=== PATIENT | male | born 1950 | race Caucasian/White ===

== ENCOUNTER 2019-05-09 07:21 | Day surgery (SDC) | payer OTHER ==
[~2019-05-09] VITALS: Ht 185.4 cm; Wt 116.8 kg
[~2019-05-09 07:21] MED LIST: BUPR150ER; Cialis5 MG; DIAZ5 PO; TAMS.4ER; TRIHYD253A PO
--- NOTE | 2019-05-09 07:57 | NUR ---
History, Chart, Medications and Allergies reviewed before start of procedure.Patient confirms NPO status and agrees with scheduled surgery. Lungs clear T/O to Auscultation. Patient States Post-Procedure ride home has been arranged. Patient states colon prep results clear.
--- NOTE | 2019-05-09 09:35 | NUR ---
05/09/19 0935 BRADLY العلي History, Chart, Medications and Allergies reviewed before start of procedure.3-LEAD EKG REVIEWED WITH PHYSICIAN PRIOR TO START OF PROCEDURE.O2 VIA N/C INTACT THROUGHOUT SEDATION/PROCEDURE. MONITOR INTACT WITH CONTINUOUS PULSE OXIMETRY AND INTERMITTENT BP.See Anesthesia record
--- NOTE | 2019-05-09 11:05 | NUR ---
Patient States Post-Procedure ride home has been arranged. Discharge instructions reviewed with patient. Patient verbalizes understanding. Copy given to patient to take home.
== END 2019-05-09 11:04 | disposition home or self-care (01) ==
LOC: ORSCMMR 07:21 → ORD 09:00 → ORSCMMR 11:04
DX: K63.89 Other specified diseases of intestine (principal); D12.3 Benign neoplasm of transverse colon; D12.4 Benign neoplasm of descending colon; I10 Essential (primary) hypertension; G47.33 Obstructive sleep apnea (adult) (pediatric); K21.9 Gastro-esophageal reflux disease without esophagitis; H81.09 Meniere's disease, unspecified ear; E66.9 Obesity, unspecified; Z68.34 Body mass index [BMI] 34.0-34.9, adult; Z79.899 Other long term (current) drug therapy
CPT/HCPCS: 88305; J2001; J2704; J7120

== ENCOUNTER 2019-05-26 10:21 | Day surgery (SDC) | payer OTHER ==
--- NOTE | 2019-05-26 12:05 | NUR ---
PT TRANSFERRED TO ROOM, SITTING UP IN BED, WITH PT. PT DENIES PAIN, DENIES RECTAL BLEEDING, DENIES N/V. PT WILL REMAIN NPO UNTIL GOING HOME. VSS. INSTRUCTED PT TO NOTIFY NURSING STAFF IF ANY CHANGES IN POSITION, ANY N/V, ANY PAIN, ANY BLEEDING. PT AND UNDERSTAND INSTRUCTIONS AND WILL NOTIFY NURSING STAFF OF ANY CHANGES.
--- NOTE | 2019-05-26 12:51 | NUR ---
DR EPPS ROUNDING ON PT, ORDERS TO START PT ON CLEARS AND SEND HIM HOME AT 1400.
--- NOTE | 2019-05-26 14:16 | NUR ---
provided pt with discharge instructions, no peripheral IV to be removed, VSS, no acute changes. pt requests to walk to his car
== END 2019-05-26 14:15 | disposition home or self-care (01) ==
LOC: CT 10:21 → SURS 11:57 → CT 14:15
DX: K63.89 Other specified diseases of intestine (principal); D12.4 Benign neoplasm of descending colon; D12.3 Benign neoplasm of transverse colon; I10 Essential (primary) hypertension; F90.9 Attention-deficit hyperactivity disorder, unspecified type; G47.30 Sleep apnea, unspecified; H81.09 Meniere's disease, unspecified ear; Z99.89 Dependence on other enabling machines and devices; Z87.891 Personal history of nicotine dependence; Z79.899 Other long term (current) drug therapy
CPT/HCPCS: 49180; 77012; 88305

== ENCOUNTER 2019-07-15 08:15 | Inpatient (IN) | payer OTHER ==
[~2019-07-15] VITALS: Ht 185.4 cm; Wt 118.2 kg
--- NOTE | 2019-07-16 06:36 | NUR ---
History, Chart, Medications and Allergies reviewed before start of procedure. Lungs clear T/O to Auscultation. Patient confirms NPO status and agrees with scheduled surgery. Patient reports completing Chlorhexadine shower X2 prior to admission to hospital. Pre-Op teaching done. Pt verbalizes understanding. Patient states colon prep results clear.
--- NOTE | 2019-07-16 13:19 | NUR ---
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
--- NOTE | 2019-07-16 15:09 | NUR ---
pt dozing off increased oxygen to 3l nc biox went up to 94%
--- NOTE | 2019-07-16 17:03 | NUR ---
DR LOYA BY TO SEE PT OK TO HAVE ICE CHIPS AND SIPS OF JUICE
--- NOTE | 2019-07-16 18:09 | NUR ---
pt wanting to stand next to the bed again tried earlier no dizziness or nausea pt's asked if she could help him stated yes
[2019-07-17 05:46] LABS: BASOPHILS ABSOLUTE AUTO 0.04 K/mm3 (0.00-0.23); BASOPHILS PERCENT AUTO 0 % (0-2); EOSINOPHILS ABSOLUTE AUTO 0.02 K/mm3 (0.00-0.68); EOSINOPHILS PERCENT AUTO 0 % (0-6); Hematocrit 45.5 % (37.0-53.0); Hemoglobin 14.9 g/dL (13.5-17.5); IMMATURE GRAN ABSOLUTE AUTO 0.04 K/mm3 (0.00-0.10); IMMATURE GRAN PERCENT AUTO 0 % (0-1); LYMPHOCYTES ABSOLUTE AUTO 1.23 K/mm3 (0.84-5.20); LYMPHOCYTES PERCENT AUTO 10 % (21-46); MONOCYTES ABSOLUTE AUTO 1.67 K/mm3 (0.16-1.47); MONOCYTES PERCENT AUTO 13 % (4-13); Mean Corpuscular HGB 30.5 pg (26.0-34.0); Mean Corpuscular HGB Conc 32.7 g/dL (31.5-36.5); Mean Corpuscular Volume 93 fL (80-100); Mean Platelet Volume 10.7 fL (9.1-12.4); NEUTROPHILS PERCENT AUTO 76 % (41-73); Platelet Count 216 K/mm3 (150-400); RDW Coefficient Variation 13.2 % (11.7-14.2); Red Blood Cell Count 4.88 M/mm3 (4.30-5.90)
[2019-07-17 06:09] LABS: Anion Gap 4 mmol/L (6-16); Blood Urea Nitrogen 12 mg/dL (8-24); Bun/Creatinine Ratio 14.1 (12.0-20.0); CO2, Blood 28 mmol/L (21-32); Calcium, Blood 8.3 mg/dL (8.5-10.1); Chloride, Blood 105 mmol/L (98-108); Creatinine, Blood 0.85 mg/dL (0.60-1.20); Glomerular Filtration Rate >60 (60-); Glucose, Blood 105 mg/dL (70-99); Potassium, Blood 3.8 mmol/L (3.5-5.5); Sodium, Blood 137 mmol/L (136-145)
--- NOTE | 2019-07-17 06:44 | NUR ---
SUMMARY PT TOLERATING SIPS PO FLUIDS TONIGHT. NO C/O NAUSEA. MOVES IN BED WITH ASSIST. INCREASED USE OF CARDIOTHORACIC PHYSIOTHERAPIST NAD HAS BEEN ABLE TO INCREASE STRENGTH OF CDB ABD IS.
--- NOTE | 2019-07-17 17:30 | NUR ---
SUMMARY NO ACUTE CHANGES T/O SHIFT. PT REPORTS PAIN TOLERABLE W/ USE OF MEDICAL ACCOUNTING CLERK. PT AMBULATED MULTIPLE TIMES T/O HALLS ACCOMPANIED BY SPOUSE. VOIDING W/O DIFFICULTY. TOLERATING CLEAR LIQUIDS.
--- NOTE | 2019-07-18 06:25 | NUR ---
SUMMARY ASSUMED CARE OF PT TONIGHT. PT HAS BEEN SLEEPING WITH NO DISTRESS NOTED.
--- NOTE | 2019-07-18 07:25 | NUR ---
min pain pt laying in bed stated earlier he just got up to bathroom to void stated had burped and had some hiccups no flatus hypo bt's x4 mild/mod dist no nausea pt stated dr teague came to see him this am stated he could have full liquid diet and transition to po pain meds
--- NOTE | 2019-07-18 16:30 | NUR ---
PT STATED HE PASSED FLATUS NO STOOL NO ABD CRAMPING OR NAUSEA
--- NOTE | 2019-07-18 18:22 | NUR ---
PT AMB IN HALLWAY URINE IS FIELD TECHNICAL SUPPORT CONSULTANT STATED HE HAS PASSED GAS 4 TIMES OVERALL STILL NO NAUSEA
[2019-07-19 04:45] LABS: BASOPHILS ABSOLUTE AUTO 0.06 K/mm3 (0.00-0.23); BASOPHILS PERCENT AUTO 1 % (0-2); EOSINOPHILS ABSOLUTE AUTO 0.32 K/mm3 (0.00-0.68); EOSINOPHILS PERCENT AUTO 4 % (0-6); Hematocrit 47.9 % (37.0-53.0); Hemoglobin 15.2 g/dL (13.5-17.5); IMMATURE GRAN ABSOLUTE AUTO 0.02 K/mm3 (0.00-0.10); IMMATURE GRAN PERCENT AUTO 0 % (0-1); LYMPHOCYTES ABSOLUTE AUTO 1.83 K/mm3 (0.84-5.20); LYMPHOCYTES PERCENT AUTO 24 % (21-46); MONOCYTES PERCENT AUTO 18 % (4-13); Mean Corpuscular HGB 30.4 pg (26.0-34.0); Mean Corpuscular HGB Conc 31.7 g/dL (31.5-36.5); Mean Platelet Volume 10.4 fL (9.1-12.4); NEUTROPHILS ABSOLUTE AUTO 4.16 K/mm3 (1.96-9.15); NEUTROPHILS PERCENT AUTO 53 % (41-73); Platelet Count 208 K/mm3 (150-400); RDW Coefficient Variation 13.2 % (11.7-14.2); RDW Standard Deviation 46.8 fL (35.1-46.3); White Blood Cell Count 7.79 K/mm3 (4.00-11.30)
[2019-07-19 04:46] LABS: Mean Corpuscular Volume 96 fL (80-100)
[2019-07-19 05:04] LABS: Anion Gap 3 mmol/L (6-16); Blood Urea Nitrogen 7 mg/dL (8-24); Bun/Creatinine Ratio 7.7 (12.0-20.0); CO2, Blood 31 mmol/L (21-32); Calcium, Blood 8.2 mg/dL (8.5-10.1); Chloride, Blood 105 mmol/L (98-108); Creatinine, Blood 0.91 mg/dL (0.60-1.20); Glomerular Filtration Rate >60 (60-); Glucose, Blood 103 mg/dL (70-99); Potassium, Blood 3.7 mmol/L (3.5-5.5); Sodium, Blood 139 mmol/L (136-145)
--- NOTE | 2019-07-19 12:58 | NUR ---
DR SHORT HERE TO SEE PT. DISCUSSED PT'S STATUS. REPORTS MAY S.L. PT AND CONT WITH C.L. DIET FOR NOW.
--- NOTE | 2019-07-19 16:28 | NUR ---
SHIFT SUMMARY PT TOLERATING C.L. DIET. PT REPORTS HAVING TINY SMALL BM. PT VOIDING. PT BEEN UP AMBULATING IN HALLWAYS MULT TIMES TODAY. PT FAMILY IN ROOM MOST OF DAY. PT BEEN ASSISTED WITH ADL'S PRN. DISCUSSED PAIN MGMT/BOWEL CARE. REPORTS PASSING SMALL AMT OF GAS.
--- NOTE | 2019-07-20 05:50 | NUR ---
SHIFT SUMMARY POD#4. AAOX4. DISCOMFORT CONTROLLED WITH 2 ROXICODONE Q4 + SCHEDULED TYLENOL/GABAPENTIN. NO NAUSEA/EMESIS. ABD INCISION WITH JABARI SCANT AMOUNT DRY SS DRAINAGE, NO INCREASE X24 HRS. HYPERACTIVE BTx4. MODERATE AMOUNT FLATUS OUT YESTARDAY EVENING, NO BM THIS SHIFT. PT UP AMBULATING IN HALLS INDEPENDENTLY, WITH ABD BINDER IN PLACE, CONTINUE TO ENCOURAGE AMBULATION TOLERATED. GOOD PO INTAKE + URINE OUTPUT. TOLERATING CLEAR LIQUID DIET. PT RESTED WELL T/O NIGHT + RESTING WELL AT THIS TIME WITH CALL LIGHT IN REACH.
--- NOTE | 2019-07-20 09:30 | NUR ---
REPORTS STATING THAT THE RASH ON HIS BOTTOM LOOKS MUCH BETTER THIS AM BEFORE SHOWER.
--- NOTE | 2019-07-20 10:10 | NUR ---
DR SHORT RECENTLY HERE, SEE NEW ORDERS.
--- NOTE | 2019-07-20 13:36 | NUR ---
OTHER NIKKO Laurent GIVEN REPORT AND IS ASSUMING CARE OF PT AT THIS TIME.
--- NOTE | 2019-07-20 16:43 | NUR ---
SHIFT SUMMARY NO ACUTE CHANGES SINCE ASSUMING CARE AT 1300 TODAY. PT STATES HE IS TOLERATING SMALL AMOUNTS OF HIS REGULAR DIET; DENIES ANY N/V OR PAIN. HE IS AMBULATING IN HALLWAYS IND, PASSING GAS, AND VOIDING WITHOUT DIFFICULTY. PAIN IS MANAGED WITH PO MEDICATION. PT IS CURRENTLY IN BED WATCHING TV WITH CALL LIGHT IN HAND. WILL CONT TO MONITOR AND GIVE REPORT TO ONCOMING RN.
--- NOTE | 2019-07-21 07:38 | NUR ---
SHIFT SUMMARY PT RESTED WELL T/O NIGHT. AAOX4. PAIN CONTROLLED WITH 2 ROXICODONE Q4H + SCHEDULED TYLENOL/GABAPENTIN. NO NAUSEA/EMESIS. ABD INCISION WITH JABARI SCANT RED DRY DRAINAGE, NO INCREASE X24 HRS. BOWEL TONES X4. SMALL AMOUNTS OF FLATUS T/O NIGHT, NO BM THIS SHIFT. CONTINUE TO ENCOURAGE AMBULATION TOLERATED. PT SITTING UP IN BED AT THIS TIME WATCHING TV WITH CALL LIGHT IN REACH.
[2019-07-21] MEDS ORDERED: OXYC5 PO (09:30)
[2019-07-21] MEDS ORDERED: ACET325 PO (09:30)
--- NOTE | 2019-07-21 10:03 | NUR ---
DISCHARGE: PACKET PRINTED, PT EDUCATED. SENT WITH OXYCODONE SCRIPT AND MEDIPORE DRESSINGS. LEFT UNIT ON FOOT WITH .
== END 2019-07-21 09:50 | disposition home or self-care (01) | DRG 983 ==
LOC: SURS 07-16 06:00 → PRE IP 07-16 07:30 → SURS 07-16 12:38
PROVIDERS: ADMIT Surgery
PROC: 0DTL0ZZ Resection of Transverse Colon, Open Approach (ICD-10-PCS; principal; 2019-07-16 07:30)
DX: D48.1 Neoplasm of uncertain behavior of connective and other soft tissue (principal); I10 Essential (primary) hypertension; Z87.891 Personal history of nicotine dependence
CPT/HCPCS: 36415; 80048; 85025; 86850; 86900; 86901; 88305; 88307; 88329; 94667; 94762; A9270; J0690; J1100; J1650; J1885; J2370; J2405; J2704; J3010; J7120

== ENCOUNTER 2022-07-14 07:28 | Day surgery (SDC) | payer OTHER ==
[~2022-07-14] VITALS: Ht 185.4 cm; Wt 120.4 kg
[~2022-07-14 07:28] MED LIST changes: +ACET325 PO; +BUPR150ER PO; +OXYC5 PO; +TAMS.4ER PO
[2022-07-14] MEDS ORDERED: VITAMIN B122500 MC1 PO (07:45)
[2022-07-14] MEDS ORDERED: VITAMIN D325 MC3 PO (07:46)
--- NOTE | 2022-07-14 09:02 | NUR ---
07/14/22 0902 Shanon Alvarez MONITOR INTACT WITH CONTINUOUS PULSE OXIMETRY AND INTERMITTENT BP.
--- NOTE | 2022-07-14 09:51 | NUR ---
Discharge instructions reviewed with patient. Patient verbalizes understanding. Copy given to patient to take home. Discharged via wheelchair to private car for ride home.
== END 2022-07-14 10:10 | disposition home or self-care (01) ==
LOC: ORSCMMR 07:28 → ORD 08:45 → ORSCSDS 08:45 → ORSCMMR 10:10
PROVIDERS: Surgery
PROC: 0DBM8ZX Excision of Descending Colon, Via Natural or Artificial Opening Endoscopic, Diagnostic (ICD-10-PCS; principal; 2022-07-14 08:45)
PROC: 0DBL8ZX Excision of Transverse Colon, Via Natural or Artificial Opening Endoscopic, Diagnostic (ICD-10-PCS; principal; 2022-07-14 08:45)
DX: Z12.11 Encounter for screening for malignant neoplasm of colon (principal); Z86.010 Personal history of colon polyps; D12.3 Benign neoplasm of transverse colon; K57.30 Diverticulosis of large intestine without perforation or abscess without bleeding; G47.33 Obstructive sleep apnea (adult) (pediatric); F90.9 Attention-deficit hyperactivity disorder, unspecified type; F41.9 Anxiety disorder, unspecified; D12.4 Benign neoplasm of descending colon; E66.9 Obesity, unspecified; Z68.36 Body mass index [BMI] 36.0-36.9, adult; Z87.891 Personal history of nicotine dependence; Z79.899 Other long term (current) drug therapy
CPT/HCPCS: 88305; J2704; J7120

== ENCOUNTER 2022-07-16 21:01 | Inpatient (IN) | payer OTHER ==
[~2022-07-16] VITALS: Ht 185.4 cm; Wt 117.9 kg
[~2022-07-16 21:01] MED LIST changes: +VITAMIN B122500 MC1 PO; +VITAMIN D325 MC3 PO
[2022-07-16 21:50] LABS: BASOPHILS ABSOLUTE AUTO 0.05 K/mm3 (0.00-0.23); BASOPHILS PERCENT AUTO 0 % (0-2); EOSINOPHILS ABSOLUTE AUTO 0.02 K/mm3 (0.00-0.68); EOSINOPHILS PERCENT AUTO 0 % (0-6); Hematocrit 50.1 % (37.0-53.0); Hemoglobin 17.2 g/dL (13.5-17.5); IMMATURE GRAN ABSOLUTE AUTO 0.05 K/mm3 (0.00-0.10); IMMATURE GRAN PERCENT AUTO 0 % (0-1); LYMPHOCYTES ABSOLUTE AUTO 1.08 K/mm3 (0.84-5.20); LYMPHOCYTES PERCENT AUTO 8 % (21-46); MONOCYTES ABSOLUTE AUTO 1.62 K/mm3 (0.16-1.47); MONOCYTES PERCENT AUTO 12 % (4-13); Mean Corpuscular HGB Conc 34.3 g/dL (31.5-36.5); Mean Corpuscular Volume 90 fL (80-100); Mean Platelet Volume 10.5 fL (9.1-12.4); NEUTROPHILS ABSOLUTE AUTO 11.26 K/mm3 (1.96-9.15); NEUTROPHILS PERCENT AUTO 80 % (41-73); Platelet Count 213 K/mm3 (150-400); RDW Coefficient Variation 13.2 % (11.7-14.2); RDW Standard Deviation 43.9 fL (35.1-46.3); Red Blood Cell Count 5.55 M/mm3 (4.30-5.90); White Blood Cell Count 14.08 K/mm3 (4.00-11.30)
[2022-07-16 22:08] LABS: Albumin, Blood 3.5 g/dL (3.4-5.0); Albumin/Globulin Ratio 0.9 (0.8-1.8); Bilirubin, Total 2.7 mg/dL (0.1-1.0); Bun/Creatinine Ratio 9.7 (12.0-20.0); Calcium, Blood 8.6 mg/dL (8.5-10.1); Creatinine, Blood 0.83 mg/dL (0.60-1.20); Globulin, Blood 4.1 g/dL (2.2-4.0); Potassium, Blood 3.9 mmol/L (3.5-5.5); Total Protein, Blood 7.6 g/dL (6.4-8.2)
--- NOTE | 2022-07-17 02:04 | NUR ---
ARRIVAL PT NEW ADMIT TO THE FLOOR FROM ER. ARRIVED IN NO DISTRESS. C/O LLQ PAIN THAT RADIATES ACROSS THE BOTTOM OF ABD. HYPOACTIVE B/T, PT DENIES PASSING FLATTUS OR PASSING BM'S SINCE 07/14. PT REPORTS HIS ABD FEELS DISTENDED. VSS. A/OX4. AWAITING FURTHER ORDERS FROM AT THIS TIME.
--- NOTE | 2022-07-17 05:14 | NUR ---
VSS. PT SLEPT WELL T/O THE NIGHT. HAS REMAINED NPO. VOIDING W/O DIFFICULTY, STILL NO FLATTUS OR BM. FLUIDS RUNNING. OBTAINED ORDER FOR DILAUDED FOR PAIN, PT REPORTS GOOD RELIEF. NO N/V. PLAN FOR PT TO START ABX THERAPY TODAY AND HAVE A SURGICAL CONTSULT. THE PATIENT IS SITTING ON THE EDGE OF BED, IN NO DISTRESS, CALL LIGHT IN REACH
[2022-07-17 10:03] LABS: Source, Urine Clean Catch
[2022-07-17 10:07] LABS: Appearance, Urine Turbid (Clear); Bilirubin, Urine Neg (Neg); Blood, Urine 5+ (Neg); Color, Urine Yellow (P-Yellow); Glucose Qualitative, Urine Neg (Neg); Ketones, Urine 4+ (Neg); Leukocyte Esterase, Urine 1+ (Neg); Nitrite, Urine Neg (Neg); Protein, Urine 2+ (Neg); Urobilinogen, Urine 1+ (Normal)
[2022-07-17 10:41] LABS: White Blood Cells, Urine 0-2 /hpf (0-5)
[2022-07-17 10:44] LABS: Squamous Epithelial Cells Rare /hpf (Few)
[2022-07-17 10:45] LABS: Bacteria Few /hpf
[2022-07-17 10:51] LABS: Amorphous Heavy (0-Heavy)
--- NOTE | 2022-07-17 19:33 | NUR ---
SHIFT SUMMARY PT A&OX4, VSS/RA, ABDIFATAH PO, VOIDING WELL, NPO/ICE CHIPS, IVF @ 150 MLS/HR & ZOSYN PER EMAR, AMB INDEPENDENTLY/UP TO CHAIR, TCDB & I.S. EDU/ENC/DEMO. PAIN MANAGED WITH TYLENOL AND OXY 5 MG PRN. WILL REPORT TO ONCOMING NOC NIKKO.
--- NOTE | 2022-07-18 04:30 | NUR ---
SHIFT SUMMARY NO ACUTE CHANGES THIS SHIFT. ABD REMAINS MODERATELY DISTENDED WITH LOWER PAIN. 1 ROXICODONE FOR PAIN MANAGEMENT PRN. NPO WITH IVF + ABX PER ORDERS. INDEP TO RESTROOM. URINE REMAINS DARK IN COLOR. VSS. USES CALL LIGHT APPROPRIATELY.
[2022-07-18 04:38] LABS: BASOPHILS ABSOLUTE AUTO 0.05 K/mm3 (0.00-0.23); BASOPHILS PERCENT AUTO 0 % (0-2); EOSINOPHILS ABSOLUTE AUTO 0.15 K/mm3 (0.00-0.68); EOSINOPHILS PERCENT AUTO 1 % (0-6); Hematocrit 45.6 % (37.0-53.0); Hemoglobin 15.4 g/dL (13.5-17.5); IMMATURE GRAN ABSOLUTE AUTO 0.04 K/mm3 (0.00-0.10); IMMATURE GRAN PERCENT AUTO 0 % (0-1); LYMPHOCYTES ABSOLUTE AUTO 0.98 K/mm3 (0.84-5.20); LYMPHOCYTES PERCENT AUTO 9 % (21-46); MONOCYTES ABSOLUTE AUTO 1.58 K/mm3 (0.16-1.47); MONOCYTES PERCENT AUTO 14 % (4-13); Mean Corpuscular HGB 31.1 pg (26.0-34.0); Mean Corpuscular HGB Conc 33.8 g/dL (31.5-36.5); Mean Corpuscular Volume 92 fL (80-100); Mean Platelet Volume 10.6 fL (9.1-12.4); NEUTROPHILS PERCENT AUTO 75 % (41-73); Platelet Count 180 K/mm3 (150-400); RDW Coefficient Variation 13.2 % (11.7-14.2); Red Blood Cell Count 4.95 M/mm3 (4.30-5.90)
[2022-07-18 05:49] LABS: Albumin, Blood 2.8 g/dL (3.4-5.0); Albumin/Globulin Ratio 0.8 (0.8-1.8); Bilirubin, Total 2.9 mg/dL (0.1-1.0); Bun/Creatinine Ratio 11.6 (12.0-20.0); Calcium, Blood 8.2 mg/dL (8.5-10.1); Creatinine, Blood 0.77 mg/dL (0.60-1.20); Globulin, Blood 3.4 g/dL (2.2-4.0); Potassium, Blood 3.8 mmol/L (3.5-5.5); Total Protein, Blood 6.2 g/dL (6.4-8.2)
--- NOTE | 2022-07-18 18:44 | NUR ---
SHIFT SUMMARY PT A&OX4, VSS/RA, ABDIFATAH PO CLD/ICE CHIPS, VOIDING WELL(LT ORANGE), IVF @ 150 MLS/HR & ZOSYN PER EMAR, AMB INDEPENDENTLY/UP TO CHAIR, TCDB & I.S. EDU/ENC/DEMO. PAIN MANAGED WITH TYLENOL AND OXY 5 MG PRN. WILL REPORT TO ONCOMING NOC NIKKO.
--- NOTE | 2022-07-19 03:56 | NUR ---
S/P COLON PERF, PATIENT ON CL DIET TOLERATING SIPS OF H2O AND ICE CHIPS. ABD IS DISTENDED WITH HYPOACTIVE BOWEL TONES. PATIENT IS AOX4, INDEPENDENT. REPORTS PASSING "SOME GAS, THIS EVENING". MILD PAIN ACROSS LOWER ABD. MEDICATED AT START OF SHIFT FOR NAUSEA PER EMAR. PATIENT IS RESTING WTIH C-PAP, VSS, CALL LIGHT IN REACH.
[2022-07-19 04:17] LABS: BASOPHILS ABSOLUTE AUTO 0.04 K/mm3 (0.00-0.23); BASOPHILS PERCENT AUTO 0 % (0-2); EOSINOPHILS ABSOLUTE AUTO 0.24 K/mm3 (0.00-0.68); EOSINOPHILS PERCENT AUTO 3 % (0-6); Hematocrit 43.8 % (37.0-53.0); IMMATURE GRAN ABSOLUTE AUTO 0.04 K/mm3 (0.00-0.10); IMMATURE GRAN PERCENT AUTO 0 % (0-1); LYMPHOCYTES ABSOLUTE AUTO 0.96 K/mm3 (0.84-5.20); LYMPHOCYTES PERCENT AUTO 10 % (21-46); MONOCYTES ABSOLUTE AUTO 1.35 K/mm3 (0.16-1.47); MONOCYTES PERCENT AUTO 14 % (4-13); Mean Corpuscular HGB 30.7 pg (26.0-34.0); Mean Corpuscular HGB Conc 34.2 g/dL (31.5-36.5); Mean Corpuscular Volume 90 fL (80-100); Mean Platelet Volume 10.6 fL (9.1-12.4); NEUTROPHILS ABSOLUTE AUTO 6.89 K/mm3 (1.96-9.15); NEUTROPHILS PERCENT AUTO 72 % (41-73); Platelet Count 194 K/mm3 (150-400); RDW Coefficient Variation 12.9 % (11.7-14.2); RDW Standard Deviation 42.8 fL (35.1-46.3); Red Blood Cell Count 4.88 M/mm3 (4.30-5.90); White Blood Cell Count 9.52 K/mm3 (4.00-11.30)
[2022-07-19 04:37] LABS: Albumin, Blood 2.8 g/dL (3.4-5.0); Albumin/Globulin Ratio 0.9 (0.8-1.8); Bilirubin, Direct 0.4 mg/dL (0.0-0.3); Bilirubin, Total 1.6 mg/dL (0.1-1.0); Bun/Creatinine Ratio 7.2 (12.0-20.0); Calcium, Blood 8.1 mg/dL (8.5-10.1); Creatinine, Blood 0.84 mg/dL (0.60-1.20); Globulin, Blood 3.2 g/dL (2.2-4.0); Potassium, Blood 3.9 mmol/L (3.5-5.5)
--- NOTE | 2022-07-19 16:36 | NUR ---
Pt. is awake in bed and welcome my visit. Pt. is pleasant and displays evidence of awareness and engagement in his procedure and prognosis. Facilitate life review and considered matters of gonzalo and belief. Pt. displays confidence. Established rapport. Dr. Frazier arrived so this chapalin excused himself. Pt. verbalized gratitude for the spiritual care visit.
--- NOTE | 2022-07-19 17:34 | NUR ---
SHIFT SUMMARY PT HAS DONE WELL TODAY. SLOWLY HAS HAD INCREASE IN PO INTAKE & IS EVEN TRYING FULL LQ's RIGHT NOW. HAS AMBULATED SEVERAL TIMES. PASSINGG BUT NO BM.
--- NOTE | 2022-07-20 04:25 | NUR ---
SUMMARY PATIENT S/P COLON PERF. TOLERATING FL DIET, REPORTS NO NAUSEA, PASSING FLATUS, SMALL BM REPORTED. FLUIDS AND ABX T/O NIGHT. PATIENT IS INDEPENDENT, RESTING COMFORTABLY IN BED. VSS, CALL LIGHT IN REACH.
[2022-07-20 04:45] LABS: BASOPHILS ABSOLUTE AUTO 0.08 K/mm3 (0.00-0.23); BASOPHILS PERCENT AUTO 1 % (0-2); EOSINOPHILS ABSOLUTE AUTO 0.29 K/mm3 (0.00-0.68); EOSINOPHILS PERCENT AUTO 4 % (0-6); Hematocrit 43.3 % (37.0-53.0); Hemoglobin 15.1 g/dL (13.5-17.5); IMMATURE GRAN ABSOLUTE AUTO 0.02 K/mm3 (0.00-0.10); IMMATURE GRAN PERCENT AUTO 0 % (0-1); LYMPHOCYTES PERCENT AUTO 13 % (21-46); MONOCYTES ABSOLUTE AUTO 1.26 K/mm3 (0.16-1.47); MONOCYTES PERCENT AUTO 16 % (4-13); Mean Corpuscular HGB 30.9 pg (26.0-34.0); Mean Corpuscular HGB Conc 34.9 g/dL (31.5-36.5); Mean Corpuscular Volume 89 fL (80-100); Mean Platelet Volume 10.5 fL (9.1-12.4); NEUTROPHILS ABSOLUTE AUTO 5.32 K/mm3 (1.96-9.15); NEUTROPHILS PERCENT AUTO 67 % (41-73); Platelet Count 227 K/mm3 (150-400); RDW Coefficient Variation 12.9 % (11.7-14.2); RDW Standard Deviation 42.1 fL (35.1-46.3); Red Blood Cell Count 4.89 M/mm3 (4.30-5.90); White Blood Cell Count 7.97 K/mm3 (4.00-11.30)
[2022-07-20 05:15] LABS: Albumin, Blood 2.8 g/dL (3.4-5.0); Albumin/Globulin Ratio 0.8 (0.8-1.8); Bilirubin, Total 1.1 mg/dL (0.1-1.0); Bun/Creatinine Ratio 6.8 (12.0-20.0); Calcium, Blood 8.4 mg/dL (8.5-10.1); Creatinine, Blood 0.88 mg/dL (0.60-1.20); Globulin, Blood 3.4 g/dL (2.2-4.0); Potassium, Blood 3.4 mmol/L (3.5-5.5); Total Protein, Blood 6.2 g/dL (6.4-8.2)
[2022-07-20] MEDS ORDERED: AMOCLA875 PO (09:34)
--- NOTE | 2022-07-20 09:59 | NUR ---
DISCHARGE SUMMARY S/P COLONOSCOPY c GI PERFERATION, A/OX4, VSS, TOLERATING PO, DENIES PAIN, AMBULATING IN HIS ROOM AND HALLWAYS INDEPENDENTLY, NO SIGNS OF ANY ACUTE DISTRESS, ABLE TO COMMUNICATE NEEDS. DISCUSSED DISCHARGE INFORMATION WITH HIM AND HIS INCLUDING HOME CARE, S/SX TO LOOK OUT FOR AND CONTACT INFORMATION TO GET AHOLD OF THE SURGEON SHOULD ANY ARISE, MEDICATION CHANGES AND HIS PROVIDED ABX SCRIPT. IV ACCESS REMOVED BY MEDICAL REVIEW COORDINATOR, PT DENIES ANY QUESTIONS AT TIME OF DISCHARGE. HE LEFT WITH HIS IMMEDIATELY AFTER COMPLETING HIS DISCHARGE INSTRUCTIONS.
== END 2022-07-20 09:59 | disposition home or self-care (01) | DRG 395 ==
LOC: ER 21:01 → SURS 21:02
PROVIDERS: Student in an Organized Health Care Education/Training Program; Surgery; ADMIT Surgery
PROC: 5A09357 Assistance with Respiratory Ventilation, Less than 24 Consecutive Hours, Continuous Positive Airway Pressure (ICD-10-PCS; principal; 2022-07-17)
DX: K63.1 Perforation of intestine (nontraumatic) (principal); K57.30 Diverticulosis of large intestine without perforation or abscess without bleeding; G47.30 Sleep apnea, unspecified; H81.09 Meniere's disease, unspecified ear; Z91.048 Other nonmedicinal substance allergy status; Z79.899 Other long term (current) drug therapy; Z98.890 Other specified postprocedural states; Z85.831 Personal history of malignant neoplasm of soft tissue; Z87.891 Personal history of nicotine dependence; Z90.49 Acquired absence of other specified parts of digestive tract; Z85.46 Personal history of malignant neoplasm of prostate
CPT/HCPCS: 36415; 74177; 80053; 81001; 82248; 83605; 83690; 85025; 87086; 93005; 93010; 94660; 94762; 96365-59; 96375; 99285-25; A9270; G0378; J1170; J1650; J1885; J2405; J2543; J3010; J7030; J7050; J7120; Q9967

== ENCOUNTER 2024-07-03 02:54 | Observation (INO) | payer MEDICARE ==
[~2024-07-03] VITALS: Ht 185.4 cm; Wt 121.9 kg
[~2024-07-03 02:54] MED LIST changes: +AMOCLA875 PO
[2024-07-03] MEDS ORDERED: DIAZ5 PO (03:39)
[2024-07-03] MEDS ORDERED: Ondansetron HCl 2 MG / ML 2ML Vial IV ONE (03:50)
[2024-07-03 03:51] LABS: BASOPHILS ABSOLUTE AUTO 0.08 K/mm3 (0.00-0.23); BASOPHILS PERCENT AUTO 1 % (0-2); EOSINOPHILS ABSOLUTE AUTO 0.06 K/mm3 (0.00-0.68); EOSINOPHILS PERCENT AUTO 1 % (0-6); Hematocrit 51.2 % (37.0-53.0); Hemoglobin 17.9 g/dL (13.5-17.5); IMMATURE GRAN ABSOLUTE AUTO 0.05 K/mm3 (0.00-0.10); IMMATURE GRAN PERCENT AUTO 0 % (0-1); LYMPHOCYTES ABSOLUTE AUTO 1.06 K/mm3 (0.84-5.20); LYMPHOCYTES PERCENT AUTO 9 % (21-46); MONOCYTES ABSOLUTE AUTO 1.03 K/mm3 (0.16-1.47); MONOCYTES PERCENT AUTO 9 % (4-13); Mean Corpuscular HGB 30.9 pg (26.0-34.0); Mean Corpuscular Volume 88 fL (80-100); Mean Platelet Volume 10.3 fL (9.1-12.4); NEUTROPHILS ABSOLUTE AUTO 9.86 K/mm3 (1.96-9.15); NEUTROPHILS PERCENT AUTO 81 % (41-73); Platelet Count 237 K/mm3 (150-400); RDW Coefficient Variation 13.2 % (11.7-14.2); RDW Standard Deviation 42.9 fL (35.1-46.3); Red Blood Cell Count 5.79 M/mm3 (4.30-5.90); White Blood Cell Count 12.14 K/mm3 (4.00-11.30)
[2024-07-03] MEDS ORDERED: FentaNYL Citrate 50 MCG/ML 2 ML Injection IV PRN (04:30)
[2024-07-03 04:41] LABS: Source, Urine Clean Catch
[2024-07-03 04:43] LABS: Bilirubin, Urine Neg (Neg); Blood, Urine 4+ (Neg); Glucose Qualitative, Urine Neg (Neg); Ketones, Urine 3+ (Neg); Leukocyte Esterase, Urine Neg (Neg); Nitrite, Urine Neg (Neg); Protein, Urine 2+ (Neg); Urobilinogen, Urine NORM (Normal)
[2024-07-03 04:46] LABS: Albumin, Blood 3.8 g/dL (3.4-5.0); Albumin/Globulin Ratio 0.9 (0.8-1.8); Bilirubin, Total 1.2 mg/dL (0.1-1.0); Bun/Creatinine Ratio 14.9 (12.0-20.0); Calcium, Blood 8.9 mg/dL (8.5-10.1); Creatinine, Blood 1.01 mg/dL (0.60-1.20); Globulin, Blood 4.1 g/dL (2.2-4.0); Potassium, Blood 4.1 mmol/L (3.5-5.5); Total Protein, Blood 7.9 g/dL (6.4-8.2)
[2024-07-03 04:51] LABS: Appearance, Urine Hazy (Clear); Color, Urine Yellow (P-Yellow)
[2024-07-03 05:01] LABS: Bacteria Few /hpf; Calcium Oxalate Crystals Many /hpf; Squamous Epithelial Cells Few /hpf (Few); White Blood Cells, Urine 0-2 /hpf (0-5)
[2024-07-03] MEDS ORDERED: HYDROmorphone HCl/Pf 1MG SYR IV ONE ×2 (05:10→06:20)
[2024-07-03] MEDS ORDERED: Ketorolac Tromethamine 30mg Vial IV ONE (05:50)
[2024-07-03] MEDS ORDERED: NS 1,000 ML IV SCH (06:15)
[2024-07-03] MEDS ORDERED: Prochlorperazine Edisylate 10 mg Vial IV ONE (06:45)
[2024-07-03] MEDS ORDERED: DiphenhydrAMINE HCl 50 MG/ML 1ML Vial IV ONE (06:45)
[2024-07-03] MEDS ORDERED: OxyCODONE HCL 5 MG TAB PO PRN (08:10)
[2024-07-03] MEDS ORDERED: FLU VACC TS2024-25(6MOS UP)/PF 45 MCG/0.5 ML SYRINGE IM SCH (08:10)
[2024-07-03] MEDS ORDERED: Magnesium Hydroxide Conc 10 ML UDC PO PRN (08:10)
[2024-07-03] MEDS ORDERED: Ondansetron 4 MG TAB PO PRN (08:10)
[2024-07-03] MEDS ORDERED: Sennosides 8.6 MG Tab PO PRN (08:15)
[2024-07-03 15:29] VITALS: BP 147/81
[2024-07-03 16:02] LABS: Hematocrit 51.5 % (37.0-53.0); Hemoglobin 17.9 g/dL (13.5-17.5)
--- NOTE | 2024-07-03 17:51 | NUR ---
SHIFT SUMMARY PT A&OX4, VSS, AMB IND, TOLERATING PO, VOIDING DARK URINE, AND DENIED PAIN. THIS RN SPOKE W/ AND PLAN FOR PT TO BE D/C YULY AND PT TO FOLLOW UP OUTPATIENT W/ HIS UROLOGIST.
[2024-07-03] MEDS ORDERED: ONDA4 PO (17:54)
[2024-07-03] MEDS ORDERED: KETO10 PO (17:55)
--- NOTE | 2024-07-03 18:27 | NUR ---
DISCHARGE NOTE PT DISCHARGED HOME AT 1825. PT PROVIDED W/ VERBAL AND WRITTEN INSTRUCTIONS AND REPORTED UNDERSTANDING. PT A&OX4, VSS, AMB IND, TOLERATING PO, VOIDING, AND DENIED PAIN. BELONGINGS WERE RETURNED AND PT ESCOURTED OUT BY YISSEL DIA.
[2024-07-04] MEDS ORDERED: Enoxaparin 40 MG/0.4 ML SYR SC SCH (09:00)
== END 2024-07-03 18:38 | disposition home or self-care (01) ==
LOC: ER 02:54 → ERHOLD 04:41 → MEDS 15:27
PROVIDERS: Emergency Medicine; ADMIT Internal Medicine
DX: N28.89 Other specified disorders of kidney and ureter (principal); R31.9 Hematuria, unspecified; H81.09 Meniere's disease, unspecified ear; N13.30 Unspecified hydronephrosis; Z87.442 Personal history of urinary calculi; Z85.46 Personal history of malignant neoplasm of prostate; Z87.891 Personal history of nicotine dependence; Z91.048 Other nonmedicinal substance allergy status; Z79.899 Other long term (current) drug therapy
CPT/HCPCS: 36415; 51798; 74177; 80053; 81001; 85014; 85018; 85025; 96361; 96374-59; 96375; 96376; 99285-25; G0378; J0780; J1171; J1200; J1885; J2405; J3010; J7030; Q9967

== ENCOUNTER → 2024-07-08 | Outpatient (CLI) | payer MEDICARE ==
[~2024-07-08] MED LIST changes: +KETO10 PO; +ONDA4 PO
== END ==
LOC: LAB SHORT 12:27 → LAB 12:27
DX: R93.421 Abnormal radiologic findings on diagnostic imaging of right kidney (principal); R31.9 Hematuria, unspecified
CPT/HCPCS: 88108